=== PATIENT | male | born 1970 | race Caucasian/White ===

== ENCOUNTER 2016-09-18 11:11 | Emergency (ER) | payer OTHER ==
[2016-09-18 12:19] VITALS: BP 113/81
[2016-09-18] MEDS ORDERED: Lidocaine 1%* 5 ML VIAL ONE (13:25)
--- NOTE | 2016-09-18 13:36 | UC ---
Laceration HPI - History Of Current Complaint Chief Complaint: UCLaceration Stated Complaint: RIGHT PINKY LACERATION Time Seen by Provider: 09/18/16 13:18 Hx Obtained From: Patient Laceration Location: Hand - right hand 5th finger ulnar side over the PIP Mechanism Of Injury: Sharp Trauma - glass broke while washing. Severity: Mild Pain Intensity: 1 Aggravating Factors: Movement Hands: 1 - Flap laceration. Length 2.2 cm Related History: Dominant Hand Right - Allergies/Home Medications Allergies/Adverse Reactions: Allergies Allergy/AdvReac Type Severity Reaction Status Date / Time No Known Allergies Allergy Verified 04/16/16 16:49 Home Medications: Home Medications Cephalexin CAP* [Keflex CAP*] 500 mg PO TID 09/18/16 [History Confirmed 09/18/16 ] PMH/Surg Hx/FS Hx/Imm Hx Previously Healthy: Yes Cardiovascular History Of: Denies: Hypertension Respiratory History Of: Denies: Asthma - Surgical History Surgical History: Yes Surgery Procedure, Year, and Place: hernia repair 7th grade. testicular tortion --surgery 8th grade - Family History Known Family History: Positive: Hypertension - Social History Occupation: Employed Full-time Lives: With Family Alcohol Use: Rare Substance Use Type: None Smoking Status (MU): Heavy Every Day Tobacco Smoker Type: Cigarettes Amount Used/How Often: 1 ppd Length of Time of Smoking/Using Tobacco: started at age 14 Have You Smoked in the Last Year: Yes - Immunization History Most Recent Influenza Vaccination: no Most Recent Tetanus Shot: unknown Review of Systems All Other Systems Reviewed And Are Negative: Yes Physical Exam Triage Information Reviewed: Yes Appearance: Well-Appearing, No Pain Distress, Well-Nourished Vital Signs: Initial Vital Signs Temp 98.8 F 09/18/16 12:09 Pulse 66 09/18/16 12:09 Resp 16 09/18/16 12:09 BP 113/81 09/18/16 12:09 Pulse Ox 99 09/18/16 12:09 Vital Signs Reviewed: Yes Eyes: Positive: Conjunctiva Clear Respiratory Exam: Normal Cardiovascular Exam: Normal Musculoskeletal Exam: Normal Neurological Exam: Normal Psychological Exam: Normal Skin: Positive: Other - laceration right 5th finger flap. Laceration Repair - Laceration Repair 1 Description: Irregular - flap laceration with base proximal Laceration Size After Repair: Length (cm) - 2.2 Modified For Repair: No Type Injection: Local Anesthesia Used: 1.0% Lido - 3cc Cleansing Completed Via Routine Prep: Yes Irrigation With Pressure Irrigation Device: Yes Closure Material: Sutures Closure Method: Single Layer - running #8 stitches Suture Type: Nylon - 4-0 Laceration Course/Dx - Differential Dx - Laceration/Wound Differental Diagnoses: Cellulitis, Laceration, Suture Removal Provider Diagnoses: Open wound right 5th finger. Simple repair 2.2 cm Discharge - Discharge Plan Condition: Stable Disposition: HOME Patient Education Materials: Laceration (ED) Additional Instructions: Use antibiotic ointment twice a day to help with the healing. Return for suture removal in 10 days.
== END 2016-09-18 14:15 | disposition home or self-care (01) ==
LOC: UCCORT 11:11
DX: S61.216A Laceration without foreign body of right little finger without damage to nail, initial encounter (principal); W25.XXXA Contact with sharp glass, initial encounter; Y93.G1 Activity, food preparation and clean up; Y92.9 Unspecified place or not applicable; F17.210 Nicotine dependence, cigarettes, uncomplicated
CPT/HCPCS: 12001; 99211; G0463

== ENCOUNTER 2019-02-08 15:26 | Emergency (ER) | payer OTHER ==
[2019-02-08 15:43] VITALS: BP 118/75
--- NOTE | 2019-02-08 16:13 | UC ---
Ear Complaint HPI - HPI Summary HPI Summary: Pt presents with c/o of left ear pain that helen gradually over the last few days. Pt states that he wears earplugs daily at work. Pt [place] URI like symptoms and ear is painful to touch tragal and outer pinna tenderness. - History of Current Complaint Chief Complaint: UCEar Stated Complaint: LEFT EAR PAIN Time Seen by Provider: 02/08/19 15:53 Hx Obtained From: Patient Onset/Duration: Gradual Onset, Lasting Days, Still Present Severity Initially: Mild Severity Currently: Moderate Pain Intensity: 4 Aggravating Factors: FB Alleviating Factors: Nothing Associated Signs/Symptoms: Positive: Swelling @ - Allergies/Home Medications Allergies/Adverse Reactions: Allergies Allergy/AdvReac Type Severity Reaction Status Date / Time No Known Allergies Allergy Verified 02/08/19 15:43 Home Medications: Home Medications Ascorbic Acid TAB* [Vitamin C TAB*] 500 mg PO DAILY 02/08/19 [History Confirmed 02/08/19] Cholecalciferol TAB* [Vitamin D TAB*] 3,000 unit PO DAILY 02/08/19 [History Confirmed 02/08/19] PMH/Surg Hx/FS Hx/Imm Hx Previously Healthy: Yes Endocrine History: Dyslipidemia GI/ History: Gastroesophageal Reflux - Surgical History Surgical History: Yes Surgery Procedure, Year, and Place: hernia repair 7th grade. testicular tortion --surgery 8th grade - Family History Known Family History: Positive: Hypertension - Social History Occupation: Employed Full-time Lives: With Family Alcohol Use: Occasionally Substance Use Type: None Smoking Status (MU): Heavy Every Day Tobacco Smoker Type: Cigarettes Amount Used/How Often: 1 ppd Length of Time of Smoking/Using Tobacco: started at age 14 Have You Smoked in the Last Year: Yes - Immunization History Most Recent Influenza Vaccination: no Most Recent Tetanus Shot: unknown Vaccination Up to Date: No Review of Systems All Other Systems Reviewed And Are Negative: Yes Constitutional: Positive: Negative Skin: Positive: Other - painful left ear canal, tragus and outer posterior ear Eyes: Positive: Negative ENT: Positive: Ear Ache - left Respiratory: Positive: Negative Cardiovascular: Positive: Negative Gastrointestinal: Positive: Negative Genitourinary: Positive: Negative Motor: Positive: Negative Neurovascular: Positive: Negative Musculoskeletal: Positive: Negative Neurological: Positive: Negative Psychological: Positive: Negative Is Patient Immunocompromised?: No Physical Exam Triage Information Reviewed: Yes Appearance: Well-Appearing Vital Signs: Initial Vital Signs Temp 97.7 F 02/08/19 15:37 Pulse 59 02/08/19 15:37 Resp 18 02/08/19 15:37 BP 118/75 02/08/19 15:37 Pulse Ox 99 02/08/19 15:37 Vital Signs Reviewed: Yes Eye Exam: Normal ENT: Positive: Other - left outer ear [place] mild swelling and mild erythema. Dental Exam: Normal Neck exam: Normal Respiratory: Positive: No respiratory distress Musculoskeletal Exam: Normal Neurological Exam: Normal Psychological Exam: Normal Skin Exam: Other - mild erythema left outer ear canal Ear Complaint Course/Dx - Differential Dx/Diagnosis Differential Diagnosis/HQI/PQRI: Cerumen Impaction, Otitis Externa Provider Diagnosis: Otitis externa of left ear Discharge - Sign-Out/Discharge Documenting (check all that apply): Patient Departure All imaging exams completed and their final reports reviewed: No Studies - Discharge Plan Condition: Stable Disposition: HOME Prescriptions: Neomyc/Polym/HC 1% OTIC SUSP* [Cortisporin Otic Susp 1%*] 4 drop LEFT EAR TID 7 Days #1 btl Patient Education Materials: Otitis Externa (ED) Referrals: Dede Hernandes MD [Primary Care Provider] - If Needed - Billing Disposition and Condition Condition: STABLE Disposition: Home
== END 2019-02-08 16:21 | disposition home or self-care (01) ==
LOC: UCCORT 15:26
DX: H60.92 Unspecified otitis externa, left ear (principal); F17.210 Nicotine dependence, cigarettes, uncomplicated
CPT/HCPCS: 99212; G0463